=== PATIENT | female | born 1930 | race Caucasian/White ===

== ENCOUNTER 2019-07-27 17:15 | Emergency (ER) | payer OTHER ==
[~2019-07-27] VITALS: Ht 154.9 cm; Wt 59.0 kg
[~2019-07-27 17:15] MED LIST: ASPI325T8 PO; CHLO4TAB20 PO; CLON0.5T PO; DILT240C32 PO; MECL25TA PO; METO25TA4 PO; MULT1TAB6 PO; PRED10TA16 PO; ZOLP5TAB PO
[2019-07-27 17:35] VITALS: BP 192/89
[2019-07-27] MEDS: NEOMY/BACITR/POLYMYXIN OINT PACKET. TP ONE (19:30)
[2019-07-27] MEDS: DIPHTH,PERTUSS(ACELL),TET TOX 0.5 ML DISP.SYRIN. VAX IM ONE (19:39)
--- NOTE | 2019-07-27 20:38 | RAD ---
EXAM: CT Head without IV contrast CLINICAL HISTORY: FALL, BRUISING TO NOSE AND LEFT EYE COMPARISON: 12/25/2013. TECHNIQUE: Routine CT of the head without contrast. Soft tissues and bone windows were reviewed. PQRS compliance statement - One or more of the following individualized dose reduction techniques were utilized for this study: 1. Automated exposure control 2. Adjustment of the mA and/or kV according to patient size 3. Use of iterative reconstruction technique FINDINGS: There is no evidence of hemorrhage, mass or extra-axial fluid collection. Real-white differentiation is maintained with no evidence of edema. Subcortical, periventricular deep white matter hypoattenuation may be seen with changes of chronic small vessel disease. Focal superimposed low-attenuation in the left frontal region extending into the anterior horn of the left internal capsule. There is no mass effect or shift of the intracranial structures. The ventricles, basilar cisterns and cortical sulci are normal in size and configuration for the patients stated age. The cerebellum and brainstem are unremarkable. The calvarium demonstrates no evidence of fracture or focal lesion. There is normal aeration of the visualized paranasal sinuses and mastoid air cells. The visualized portions of the orbits are normal. Atherosclerotic calcifications of the intracranial internal carotid and vertebral arteries is seen. IMPRESSION: 1. 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 If there is concern for superimposed acute infarct, MRI would provide additional details. 2. Additional white matter changes bilaterally, likely chronic small vessel disease. EXAM: CT facial bones without contrast CLINICAL HISTORY: FALL, BRUISING TO NOSE AND LEFT EYE COMPARISON: None available. TECHNIQUE: Helical CT of the face/paranasal sinuses was acquired and axial, coronal and sagittal reformatted images were generated. ---PQRS compliance statement - One or more of the following individualized dose reduction techniques were utilized for this study: 1. Automated exposure control 2. Adjustment of the mA and/or kV according to patient size 3. Use of iterative reconstruction technique--- FINDINGS: Subcutaneous soft tissue swelling overlying the left frontal region. No definite fracture is noted of the facial bones. Nodular thickening left maxillary sinus, mucous retention cyst or sinusitis. No evidence of air-fluid levels. The mastoids are unremarkable. The globes, extraocular muscles, optic nerves and retrobulbar fat are normal. Visualized upper aerodigestive tract is normal. Mandible and bilateral temporomandibular joints are normal. IMPRESSION: 1. No evidence for acute facial bone fracture. 2. Soft tissue swelling left frontal region. EXAM: Ct Cervical Spine Without Iv Contrast CLINICAL HISTORY: FALL, BRUISING TO NOSE AND LEFT EYE COMPARISON: None available. TECHNIQUE: Helical CT of the cervical spine was performed. Axial, coronal and sagittal reformatted images were also performed. PQRS compliance statement - One or more of the following individualized dose reduction techniques were utilized for this study: 1. Automated exposure control 2. Adjustment of the mA and/or kV according to patient size 3. Use of iterative reconstruction technique FINDINGS: Vertebral body heights are preserved. Atlantodental degenerative changes are seen. Severe C5-6, C6-7 and C7-T1 disc height loss. Trace anterolisthesis of C4 on C5. Decreased bone mineral density. No acute fracture. IMPRESSION: 1. Multilevel spondylosis as above 2. Negative acute fracture or subluxation. Electronically signed by: Jeffrey Hawkins MD (07/27/2019 8:35 PM) [place] [id number]
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
== END 2019-07-27 21:01 | disposition home or self-care (01) ==
LOC: ER 17:15
DX: S01.112A Laceration without foreign body of left eyelid and periocular area, initial encounter (principal); S01.412A Laceration without foreign body of left cheek and temporomandibular area, initial encounter; I48.91 Unspecified atrial fibrillation; I10 Essential (primary) hypertension; Z95.0 Presence of cardiac pacemaker; Z88.2 Allergy status to sulfonamides; Z88.5 Allergy status to narcotic agent; Z91.018 Allergy to other foods; W01.0XXA Fall on same level from slipping, tripping and stumbling without subsequent striking against object, initial encounter; Y93.01 Activity, walking, marching and hiking; Y92.89 Other specified places as the place of occurrence of the external cause; Y99.8 Other external cause status
CPT/HCPCS: 70450; 70486; 72125; 90471; 90715; 99284-25

== ENCOUNTER 2020-12-16 15:16 | Emergency (ER) | payer MEDICARE ==
[~2020-12-16] VITALS: Ht 154.9 cm; Wt 59.0 kg
[~2020-12-16 15:16] MED LIST changes: +HEPA50003 SQ; +HYDR-2765 PO
[2020-12-16 16:21] VITALS: BP 200/81
--- NOTE | 2020-12-16 17:44 | PHYS DOC ---
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 She said 6 months ago, she fell, was admitted here and then sent to rehab. She denies any chest pain, no abdominal pain, no nausea vomiting. Patient denies any trouble breathing or cough or f ever. Patient is having anxiety about her pacemaker. Patient has been taking clonazepam for her anxiety but not get better. Review of Systems: Review of Systems: Constitutional: Denies fever or chills. [] Eyes: Denies change in visual acuity. [] HENT: Denies nasal congestion or sore throat. [] Respiratory: Denies cough or shortness of breath. [] Cardiovascular: Denies chest pain or edema. [] GI: Denies abdominal pain, nausea, vomiting, bloody stools or diarrhea. [] : Denies dysuria. [] Musculoskeletal: Denies back pain or joint pain. [] Integument: Denies rash. [] Neurologic: Denies headache, focal weakness or sensory changes. [] Endocrine: Denies polyuria or polydipsia. [] Lymphatic: Denies swollen glands. [] Psychiatric: Denies depression or anxiety. [] Heart Score: C/O Chest Pain: N/A Risk Factors: Risk Factors: DM, Current or recent (<one month) smoker, HTN, HLP, family hi story of CAD, obesity. Risk Scores: Score 0 - 3: 2.5% MACE over next 6 weeks - Discharge Home Score 4 - 6: 20.3% MACE over next 6 weeks - Admit for Clinical Observation Score 7 - 10: 72.7% MACE over next 6 weeks - Early Invasive Strategies Allergies: Allergies: Allergies Coded Allergies Type Severity Reaction Last Updated Verified corn syrup Allergy Severe Anaphylaxis 04/06/20 No gluten Allergy Severe Swelling 04/06/20 No Sulfa (Sulfonamide Antibiotics) Allergy Intermediate 12/25/13 Yes caffeine Allergy Intermediate 04/28/16 Yes chocolate flavor Allergy Intermediate 04/28/16 Yes prednisone Allergy Intermediate Rash 04/28/16 Yes meclizine Adverse Reaction Intermediate Nausea and Vomiting 04/09/20 Yes acetaminophen Adverse Reaction Unknown 04/10/20 Yes Physical Exam: PE: Constitutional: Well developed, well nourished, no acute distress, non-toxic a ppearance. [] HENT: Normocephalic, atraumatic, bilateral external ears normal, oropharynx moist, no oral exudates, nose normal. [] Eyes: PERRLA, EOMI, conjunctiva normal, no discharge. [] Neck: Normal range of motion, no tenderness, supple, no stridor. [] Cardiovascular:Heart rate regular rhythm, no murmur [] Lungs & Thorax: Bilateral breath sounds clear to auscultation [] Abdomen: Bowel sounds normal, soft, no tenderness, no masses, no pulsatile masses. [] Skin: Warm, dry, no erythema, no rash. [] Back: No tenderness, no CVA tenderness. [] Extremities: No tenderness, no cyanosis, no clubbing, ROM intact, no edema. [] Neurologic: Alert and oriented X 3, normal motor function, normal sensory function, no focal deficits noted. [] Psychologic: Affect normal, judgement normal, mood normal. [] Current Patient Data: Vital Signs: Vital Signs Date Time Temp Pulse Resp B/P (MAP) Pulse Ox O2 Delivery O2 Flow Rate FiO2 12/16/20 16:21 61 12 200/81 (120) 98 Room Air EKG: EKG: [] Radiology/Procedures: Radiology/Procedures: [][facility] [address] [place] [address] IMAGING REPORT Signed PATIENT: GENNA IBRAHIM ACCOUNT: [id number] : 1930 LOCATION: ER AGE: 89 SEX: F EXAM STATUS: REG ER ORD. PHYSICIAN: LESIA ALLEN DO REASON: soa PROCEDURE: CHEST AP ONLY EXAMINATION: XR CHEST 1V CLINICAL HISTORY: Shortness of breath EXAM DATE/TIME: 12/16/2020 5:06 PM COMPARISON: 04/03/2020 FINDINGS: Lines, Tubes, and Devices: Left-sided dual-chamber cardiac pacemaker. Cardiomediastinal Silhouette: Normal heart size. Aortic atherosclerotic calcifi cation. Lungs and Pleura: No evidence of focal airspace consolidation or pleural effusion. Pulmonary vasculature unremarkable. Bones and Soft Tissues: No acute osseous abnormality. IMPRESSION: No evidence of acute cardiopulmonary abnormality or significant interval change. Electronically signed by: Greg Padron DO (12/16/2020 5:43 PM) [facility] DICTATED and SIGNED BY: GREG PADRON DO DATE: 12/16/20 [id number] Course & Med Decision Making: Course & Med Decision Making Pertinent Labs and Imaging studies reviewed. (See chart for details THE PACEMAKER WAS INTERROGATED AND WORK IT IS SUPPOSED TO. CHEST XRAY SHOWN PACEMAKER WIRES IN THE APPROPRIATE PLACE. Dragon Disclaimer: Dragon Disclaimer: This electronic medical record was generated, in whole or in part, using a voice recognition dictation system. Departure Departure Impression: Primary Impression: Anxiety Disposition: 01 HOME / SELF CARE / HOMELESS Condition: STABLE Referrals: CHEYANNE COLLADO MD (PCP) Follow up with your doctor as needed Patient Instructions: Anxiety and Panic Attacks Additional Instructions: Thank you for visiting our Emergency Department. We appreciate you trusting us with your care. If any additional problems come up don't hesitate to return to visit us. Please follow up with your primary care provider so they can plan additional care if needed and know about the problem that you had. If symptoms worsen come back to the Emergency Department. Any concerning symptoms that start such as chest pain, shortness of air, weakness or numbness on one side of the body, running high fevers or any other concerning symptoms return to the ER. LESIA ALLEN DO December 16, 2020 17:44
--- NOTE | 2020-12-16 17:46 | RAD ---
EXAMINATION: XR CHEST 1V CLINICAL HISTORY: Shortness of breath EXAM DATE/TIME: 12/16/2020 5:06 PM COMPARISON: 04/03/2020 FINDINGS: Lines, Tubes, and Devices: Left-sided dual-chamber cardiac pacemaker. Cardiomediastinal Silhouette: Normal heart size. Aortic atherosclerotic calcification. Lungs and Pleura: No evidence of focal airspace consolidation or pleural effusion. Pulmonary vasculat ure unremarkable. Bones and Soft Tissues: No acute osseous abnormality. IMPRESSION: No evidence of acute cardiopulmonary abnormality or significant interval change. Electronically signed by: Greg Gonzalez DO (12/16/2020 5:43 PM) [facility]
--- NOTE | 2020-12-16 18:39 | EKG ---
[facility] [address] [place] [address] Test Date: 2020-12-16 Test Time: 16:31:26 Pat Name: GENNA IBRAHIM Department: Room: Gender: F Materials Intern: : 1930 Requested By: LESIA ALLEN Order Number: [id number] Reading MD: Measurements Intervals [place] Rate: 65 P: SC: QRS: -46 QRSD: 92 T: 33 QT: 428 QTc: 446 Interpretive Statements IRREGULAR RHYTHM, NO P-WAVE FOUND VENTRICULAR PREMATURE COMPLEX(ES) ABNORMAL LEFT AXIS DEVIATION LEFT ANTERIOR FASCICULAR BLOCK ABNORMAL ECG RI6.02 No previous ECG available for comparison
== END 2020-12-16 18:06 | disposition home or self-care (01) ==
LOC: ER 15:16
DX: F41.9 Anxiety disorder, unspecified (principal); I10 Essential (primary) hypertension; I48.91 Unspecified atrial fibrillation; Z95.0 Presence of cardiac pacemaker; Z88.2 Allergy status to sulfonamides; Z88.5 Allergy status to narcotic agent; Z88.6 Allergy status to analgesic agent; Z91.018 Allergy to other foods; Z88.8 Allergy status to other drugs, medicaments and biological substances
CPT/HCPCS: 71045; 93005; 99283